=== PATIENT | female | born 1965 | race Caucasian/White ===

== ENCOUNTER 2021-02-26 21:10 | Emergency (ER) | payer MEDICAID, SELFPAY ==
[2021-02-26 21:11] VITALS: BP 164/87; PULSE 84; RESP 16; TEMP 35.8; O2SAT 97; BMI 34.5
--- NOTE | 2021-02-26 21:50 | RAD_ITS ---
INDICATION: injury EXAMINATION/TECHNIQUE: X-RAY - RIGHT XR Tibia/Fibula 2 Views COMPARISON: None. FINDINGS: No acute fracture or malalignment. No blastic or lytic lesions. No degenerative changes are seen. The soft tissues are unremarkable. Plantar heel spur. RAD/Tibia & Fibula 2 Views IMPRESSION: No acute radiographic abnormalities. Electronically Signed: Moe Carroll MD at 22:23 EDT Tel , Service support ,
[2021-02-26] MEDS: traMADol 50 MG Tablet PO (21:53)
--- NOTE | 2021-02-26 23:01 | ED.VIS.LOWEX ---
HPI History of Present Illness Chief Complaint: Lower Extremity Injury Informant: patient Occured/Mechanism Comment: Propane tank fell on leg Onset/Context/Timing Onset: Weeks (4 weeks ago) Context: Sudden Onset Timing: Waxes and wanes Quality of Pain: Aching and Throbbing Current Severity: Moderate Maximum Severity: Severe Narrative Narrative: Patient presents secondary to continued pain to her right lower leg. She describes trying to load a 200 pound propane tank into her trunk when it fell striking her on the anterior right macias. This occurred 4 weeks ago. Patient states she continues to have pain, especially with any weightbearing. She has been using a cane to help her walk. She has been taking ibuprofen every 6 hours for pain. [facility] Medical History Diverticulitis Home Medications tramadol 50 mg PO TID PRN #14 tab 02/26/21 [Rx Last Taken Unknown] Allergy/AdvReac Type Severity Reaction Status Date / Time No Known Allergies Allergy Verified 02/26/21 21:13 Social History Smoking Status: Never smoker ROS ROS ED Constitutional Constitutional ED: Denies chills or fever(s) Eyes Eyes: Denies change in vision ENT ENT ED: Denies sore throat Cardiovascular Cardiovascular: Denies chest pain Respiratory/Chest Respiratory/Chest: Denies cough or dyspnea Gastrointestinal Gastrointestinal: Denies abdominal pain, diarrhea, nausea or vomiting Genitourinary Genitourinary ED: Denies dysuria Musculoskeletal Musculoskeletal: Reports arthralgias; Denies back pain Integumentary Denies rash Neurologic Neurologic: Denies headache(s) or weakness Psychiatric Psychiatric: Denies anxiety or depression Endocrine Endocrinology: Denies polydipsia or polyuria Allergic/Immunologic Allergic/Immunologic ED: Denies urticaria EXAM Physical Exam Const Vital Signs: 02/26/21 21:11 02/26/21 23:12 Temperature 96.5 F L Temperature Source Temporal Pulse Rate 84 Respiratory Rate 16 18 Blood Pressure 164/87 H Blood Pressure Mean 112 Pulse Ox 97 Oxygen Delivery Method Room Air Positive well nourished and well developed General Appearance ED: well developed HEENT Reports normocephalic and head/scalp atraumatic Eyes PERRL and EOMs intact bilaterally Neck supple Chest Wall inspection of chest normal and palpation of chest normal Resp normal respiratory effort and clear to auscultation bilaterally Cardio regular rate and regular rhythm GI normal to inspection, nondistended, normoactive bowel sounds Palpation: soft Back/Spine no CVA tenderness Extremity Right Lower Extremity: lower leg palpation (Tenderness palpation over the proximal medial portion of the right lower leg. Deep hematoma palpated. No overlying skin change. Strong distal pulses. No significant calf tenderness or cords.) Neuro oriented x3 and no sensory deficits noted Sensorium / Orientation: alert Psych mental status grossly normal Skin no rashes or lesions noted MDM MDM MDM Narrative Medical decision making narrative: Patient was given tramadol for pain. Right tib-fib x-rays are obtained. Radiography Diagnostic Testing: Radiology Impression Tibia/Fibula X-Ray 02/26/21 21:50 IMPRESSION: No acute radiographic abnormalities. Electronically Signed: Moe Carroll MD at 22:23 EDT Tel , Service support , Treatment and Re-Evaluation Comments:: Right leg x-ray per my interpretation was no fracture. Radiologist interpretation is reviewed. Test result discussed with patient and daughter at bedside. She will be written for an outpatient DVT study as that is not available at this time. Clinical suspicion for DVT is low but is a significant concern for patient and family. I also encourage patient to follow-up with a primary care physician as she may require MRI or further imaging modalities that are not appropriate for ER. She is referred to Dr. More. She is written for a short course of tramadol for pain. Discharge Plan Triage Chief Complaint: Lower Extremity Injury ED Provider: Krystal Gardiner Dx/Rx/DC Orders Clinical Impression: Contusion of lower leg, right Instructions: ED Contusion, Lower Extremity Prescriptions: New tramadol 50 mg tablet 50 mg PO TID PRN (Reason: pain) Qty: 14 RF: 0 Primary Care Provider: Care Physician,No Primary Referrals: Tiffany More MD [STAFF PHYSICIAN] - As soon as possible Care Physician,No Primary [Primary Care Provider] - Disposition Disposition: Home, self care Discharge Date/Time: 02/26/21 23:12
[2021-02-26 23:12] VITALS: RESP 18
== END 2021-02-26 23:12 | disposition home or self-care (01) ==
PROVIDERS: Emergency Provider Emergency Medicine
DX: S80.11XA Contusion of right lower leg, initial encounter (principal); W20.8XXA Other cause of strike by thrown, projected or falling object, initial encounter; Y93.89 Activity, other specified; Y92.818 Other transport vehicle as the place of occurrence of the external cause; Y99.9 Unspecified external cause status
CPT/HCPCS: 73590; 99283

== ENCOUNTER → 2021-02-28 11:03 | Outpatient (CLI) | payer MEDICAID, SELFPAY ==
[2021-02-26 21:11] VITALS: BMI 34.5
--- NOTE | 2021-02-28 11:05 | VDLE_ITS ---
Reason For Study: pain RIGHT GSV is normal. CFV is compressible, spontaneous, phasic, competent and demonstrates normal augmentation. FV is compressible, spontaneous, phasic, competent and demonstrates normal augmentation. POP V is compressible, spontaneous, phasic, competent and demonstrates normal augmentation. T/P Trunk is compressible. PTV is compressible. RT PerV is compressible. Procedure This is a venous duplex using B-mode, color flow and spectral Doppler. Exam performed in department. The exam was abbreviated due to the COVID 19 protocol. The exam was diagnostic. VL/Venous Duplex US, Unilateral Interpretation Summary Deep veins of the right lower extremity are patent and compressible segmentally . There is no evidence of right lower extremity deep vein thrombosis. Valvular competence marline ears intact within the proximal deep venous system on the right . The right great saphenous vein a ppears patent and compressible segmentally. Ordering Physician: Krystal Gardiner Performed By: Pablo Escobar RVT
== END ==
PROVIDERS: Referring Provider Emergency Medicine; Visit Provider Emergency Medicine
DX: M79.604 Pain in right leg (principal)
CPT/HCPCS: 93971